=== PATIENT | male | born 1990 | race Caucasian/White ===

== ENCOUNTER 2017-06-24 18:30 | Emergency (ER) | payer MEDICAID ==
[~2017-06-24] VITALS: Ht 175.3 cm; Wt 96.2 kg
[2017-06-24 21:58] VITALS: BP 141/76
== END 2017-06-24 21:58 | disposition home or self-care (01) ==
LOC: ED 18:30
DX: J45.901 Unspecified asthma with (acute) exacerbation (principal); I10 Essential (primary) hypertension
CPT/HCPCS: J7512; J7620

== ENCOUNTER 2018-06-19 11:46 | Emergency (ER) | payer MEDICAID ==
[~2018-06-19] VITALS: Ht 175.3 cm; Wt 98.9 kg
[2018-06-19 12:38] VITALS: BP 146/99; Ht 175.3 cm; Wt 98.9 kg
== END 2018-06-19 15:27 | disposition left against medical advice (07) ==
LOC: ED 11:46
DX: Z53.21 Procedure and treatment not carried out due to patient leaving prior to being seen by health care provider (principal)

== ENCOUNTER 2018-10-15 21:19 | Emergency (ER) | payer MEDICAID ==
[~2018-10-15] VITALS: Ht 175.3 cm; Wt 101.2 kg
[2018-10-15 21:22] VITALS: Ht 175.3 cm; Wt 101.2 kg
[2018-10-15 23:14] VITALS: BP 141/101
== END 2018-10-15 23:14 | disposition home or self-care (01) ==
LOC: ED 21:19
DX: R06.02 Shortness of breath (principal); I10 Essential (primary) hypertension; J45.909 Unspecified asthma, uncomplicated; F14.90 Cocaine use, unspecified, uncomplicated